=== PATIENT | female | born 1970 | race Caucasian/White ===

== ENCOUNTER 2019-02-09 20:12 | Emergency (ER) | payer SELFPAY ==
[~2019-02-09] VITALS: Ht 172.7 cm; Wt 90.7 kg
[2019-02-09] MEDS ORDERED: cloNIDine HCL 0.1 MG TAB PO ONE (20:45)
[2019-02-10 01:56] VITALS: BP 139/89
[2019-02-10] MEDS ORDERED: METHOCARBAMOL 500 MG TAB PO ONE (02:30)
[2019-02-10] MEDS ORDERED: ACETAMINOPHEN 325 MG TAB PO ONE (02:30)
== END 2019-02-10 02:39 | disposition home or self-care (01) ==
LOC: EDBD 20:12 → ER 20:18
DX: M25.561 Pain in right knee (principal); I10 Essential (primary) hypertension; Z88.2 Allergy status to sulfonamides; V43.62XA Car passenger injured in collision with other type car in traffic accident, initial encounter; Y93.89 Activity, other specified; Y99.8 Other external cause status; Y92.410 Unspecified street and highway as the place of occurrence of the external cause
CPT/HCPCS: 29505; 73562